=== PATIENT | male | born 1965 | race Caucasian/White ===

== ENCOUNTER 2021-02-12 06:07 | Day surgery (SDC) | payer OTHER ==
[2021-02-10 14:31] VITALS: BMI 39.9
[2021-02-12] MEDS ORDERED: AFRIN NASAL MIST 15 ML BOT ONE ×2 (06:33→06:55)
[2021-02-12] MEDS ORDERED: Lidocaine 1% w/Epinephrine 1:100K 20 ML VIAL ONE (06:55)
[2021-02-12] MEDS ORDERED: Bacitracin Zinc Ointment 30 gm TUBE ONE (06:55)
[2021-02-12] MEDS ORDERED: Ferric Subsulfate (ASTRINGYN) 8 GM VIAL ONE (06:55)
[2021-02-12] MEDS ORDERED: EPINEPHrine 1 MG/ML AMP ONE (06:55)
[2021-02-12] MEDS ORDERED: Fentanyl 100 MCG/2 ML VIAL ONE ×4 (07:20→10:53)
[2021-02-12] MEDS ORDERED: Midazolam HCl 2 mg/2 ml Vial ONE ×2 (07:20→07:52)
[2021-02-12] MEDS ORDERED: Lidocaine 4% Topical Sol 50 ML BOT ONE (07:20)
[2021-02-12] MEDS ORDERED: PROPOFOL 200 MG/20 ML VIAL ONE (09:08)
[2021-02-12] MEDS ORDERED: Glycopyrrolate 0.2 MG/ML 5 ML SYRINGE ONE (09:08)
[2021-02-12] MEDS ORDERED: Lidocaine 1% PF 5 ML VIAL ONE (09:08)
[2021-02-12] MEDS ORDERED: Succinylcholine 200 MG/10 ml SYRINGE FS ONE (09:08)
[2021-02-12] MEDS ORDERED: Rocuronium Bromide 10 MG/ML (10ML VIAL) ONE (09:08)
[2021-02-12] MEDS ORDERED: Dexamethasone 20 MG/5 ML VIAL ONE (09:08)
[2021-02-12] MEDS ORDERED: Ondansetron PF 4 MG/2 ML Vial ONE (09:08)
[2021-02-12] MEDS ORDERED: Labetalol HCl 100 MG/20 ML VIAL ONE (09:08)
[2021-02-12] MEDS ORDERED: methylPREDNISolone Acetate 40 mg/ml Vial ONE (09:26)
[2021-02-12] MEDS ORDERED: hydrALAZINE 20 MG/ML VIAL ONE (10:57)
[2021-02-12] MEDS ORDERED: Hydrocodone-Acetamin 15 ML UDCUP ONE (12:21)
== END 2021-02-12 13:30 | disposition home or self-care (01) ==
LOC: SDC 06:07
PROVIDERS: ATTEND Otolaryngology Plastic Surgery within the Head & Neck
PROC: 09TL0ZZ Resection of Nasal Turbinate, Open Approach (ICD-10-PCS; principal; 2021-02-12)
PROC: 09SM0ZZ Reposition Nasal Septum, Open Approach (ICD-10-PCS; principal; 2021-02-12)
PROC: 0CTQXZZ Resection of Adenoids, External Approach (ICD-10-PCS; principal; 2021-02-12)
PROC: 0CTPXZZ Resection of Tonsils, External Approach (ICD-10-PCS; principal; 2021-02-12)
PROC: 0CTNXZZ Resection of Uvula, External Approach (ICD-10-PCS; principal; 2021-02-12)
PROC: 09QK0ZZ Repair Nasal Mucosa and Soft Tissue, Open Approach (ICD-10-PCS; principal; 2021-02-12)
DX: J35.03 Chronic tonsillitis and adenoiditis (principal); J34.2 Deviated nasal septum; J34.3 Hypertrophy of nasal turbinates; J34.89 Other specified disorders of nose and nasal sinuses; G47.33 Obstructive sleep apnea (adult) (pediatric); K13.79 Other lesions of oral mucosa; F17.290 Nicotine dependence, other tobacco product, uncomplicated; E66.9 Obesity, unspecified; Z68.39 Body mass index [BMI] 39.0-39.9, adult
CPT/HCPCS: 88302; 88304; 93005; 93010; J0171; J0360; J1100; J2250; J2405; J2704; J2920; J3010